=== PATIENT | male | born 1960 | race Caucasian/White ===

== ENCOUNTER 2020-09-22 15:07 | Inpatient (IN) | payer OTHER, MEDICAID ==
[~2020-09-22] VITALS: Ht 190.5 cm; Wt 85.0 kg
[~2020-09-22 15:07] MED LIST: CA C1TAB73 PO; CIPR-278 PO; CLOZ100T32 PO; GABA-1201 PO; SERT50TA12 PO; TRAM50TA4 PO
[2020-09-22] MEDS ORDERED: ACETAMINOPHEN 325 MG TABLET PO PRN ×2 (16:00→17:00)
[2020-09-22 16:03] LABS: HEMATOCRIT 35.4 % (41-53); HEMOGLOBIN 11.4 g/dL (13.5-17.5); LYMPHOCYTES # (AUTO) 0.9 K/uL (1.0-4.8); LYMPHOCYTES % (AUTO) 9.9 % (22.0-44.0); MEAN CORPUSCULAR HEMOGLOBIN 29.7 pg (26.0-34.0); MEAN CORPUSCULAR HGB CONC 32.3 G/dL (31.0-37.0); MEAN CORPUSCULAR VOLUME 92 fL (80-100); MONOCYTES # (AUTO) 0.9 K/uL (0.1-1.0); MONOCYTES % (AUTO) 10.1 % (2.0-9.0); NEUTROPHILS # (AUTO) 6.9 K/uL (1.8-7.7); PLATELET COUNT (AUTO) 275 K/uL (150-450); RED BLOOD CELL COUNT(AUTO) 3.85 MIL/uL (4.50-5.90); RED CELL DISTRIBUTION WIDTH 14.1 % (11.5-14.5)
[2020-09-22 16:21] LABS: B-TYPE NATRIURETIC PEPTIDE 35 pg/mL (0-100)
[2020-09-22 16:23] LABS: ALANINE AMINOTRANSFERASE 22 U/L (12-78); ALBUMIN 2.8 g/dL (3.4-5.0); ALKALINE PHOSPHATASE 61 U/L (46-116); ANION GAP 6 mmol/L (8-16); ASPARTATE AMINOTRANSFERASE 14 U/L (15-37); BILIRUBIN,TOTAL 0.2 mg/dL (0.1-1.0); CALCIUM, TOTAL 8.7 mg/dL (8.8-10.5); CARBON DIOXIDE 28 mmol/L (22-29); CHLORIDE 102 mmol/L (98-107); GLUCOSE,RANDOM 116 mg/dL (70-110); LIPASE 173 U/L (73-393); POTASSIUM 4.3 mmol/L (3.5-5.1); SODIUM SERUM 136 mmol/L (136-145); TOTAL PROTEIN, SERUM 7.1 g/dL (6.4-8.2); UREA NITROGEN, BLOOD 19 mg/dL (7-18)
[2020-09-22 16:34] LABS: CREATININE 1.03 mg/dL (0.60-1.30); GLOMERULAR FILTR. RATE CALC > 60 mL/min (>60)
[2020-09-22] MEDS ORDERED: ZOLPIDEM TARTRATE 10 MG TABLET PO PRN (17:00)
[2020-09-22] MEDS ORDERED: HydrOXYzine PAMOATE 50 MG CAPSULE PO PRN (17:00)
[2020-09-22] MEDS ORDERED: GABAPENTIN 300 MG CAPSULE PO PRN (17:00)
[2020-09-22] MEDS ORDERED: LOPERAMIDE HCL 2 MG CAPSULE PO PRN (17:00)
[2020-09-22] MEDS ORDERED: PROMETHAZINE HCL 25 MG TABLET PO PRN (17:00)
[2020-09-22] MEDS ORDERED: GuaiFENesin/D-METHORPHAN [SUGAR-FREE] 200-20MG/10 ML SYRUP UDCUP PO PRN (17:00)
[2020-09-22] MEDS ORDERED: TUBERCULIN, PURIFIED PROTEIN DERIVATIVE 5 TU/0.1 ML SYRINGE ID ONE (17:00)
[2020-09-22] MEDS ORDERED: QUEtiapine FUMARATE 100 MG TABLET PO PRN (17:00)
[2020-09-22] MEDS ORDERED: MAG HYDROX/AL HYDROX/SIMETH ES 30 ML SUSPENSION UDCUP PO PRN (17:00)
[2020-09-22] MEDS ORDERED: MAGNESIUM HYDROXIDE SUSPENSION 30 ML UDCUP PO PRN (17:00)
[2020-09-22 17:04] LABS: COVID AG,FIA SOURCE NASOPHARYNGEAL
[2020-09-22] MEDS: PARoxetine HCL 20 MG TABLET PO SCH (21:00)
[2020-09-22] MEDS: GABAPENTIN 300 MG CAPSULE PO SCH (21:00)
[2020-09-22] MEDS: THIAMINE 100 MG TABLET PO SCH (21:00)
[2020-09-22] MEDS: QUEtiapine FUMARATE 100 MG TABLET PO SCH (21:00)
[2020-09-22 21:13] VITALS: BP 131/86
[2020-09-22] MEDS ORDERED: DiphenhydrAMINE HCL 50 MG/ML VIAL ONE (21:31)
[2020-09-22] MEDS ORDERED: HALOPERIDOL LACTATE 5 MG/ML VIAL ONE (21:31)
[2020-09-22] MEDS ORDERED: LORazepam 2 MG/ML VIAL ONE (21:31)
[2020-09-22] MEDS ORDERED: LORazepam 2 MG/ML VIAL IM ONE (21:45)
[2020-09-22] MEDS ORDERED: HALOPERIDOL LACTATE 5 MG/ML VIAL IM ONE (21:45)
[2020-09-22] MEDS ORDERED: DiphenhydrAMINE HCL 50 MG/ML VIAL IM ONE (21:45)
[2020-09-22] MEDS: CloZAPine 100 MG TABLET PO SCH (23:05)
[2020-09-23] MEDS: TAMSULOSIN HCL 0.4 MG CAPSULE PO SCH (08:22)
[2020-09-23] MEDS: PARoxetine HCL 20 MG TABLET PO SCH ×3 (08:22→16:15)
[2020-09-23] MEDS: CloZAPine 25 MG TABLET PO SCH ×2 (08:22→16:15)
[2020-09-23] MEDS: GABAPENTIN 300 MG CAPSULE PO SCH ×3 (08:22→16:15)
[2020-09-23] MEDS: FOLIC ACID 1 MG TABLET PO SCH (08:22)
[2020-09-23] MEDS: THIAMINE 100 MG TABLET PO SCH ×2 (08:23→16:15)
[2020-09-23] MEDS: QUEtiapine FUMARATE 100 MG TABLET PO SCH ×3 (08:23→16:15)
[2020-09-23] MEDS: MULTIVITAMINS WITH MINERALS, THERAPEUTIC TABLET PO SCH (08:23)
[2020-09-23 09:10] VITALS: BP 122/67
[2020-09-23 12:38] LABS: HEMOGLOBIN A1C 6.1 % (3.8-5.6)
[2020-09-23 12:42] LABS: CHOL/HDL RATIO 3.7 (4.2-7.3); FREE T4 (FREE THYROXINE) 1.23 ng/dL (0.76-1.46); THYROID STIMULATING HORMONE 3.26 uIU/mL (0.36-3.74)
[2020-09-23] MEDS: BACITRACIN 28 GM OINTMENT TP SCH (13:38)
[2020-09-23 16:00] VITALS: BP 120/78
[2020-09-23] MEDS: CloZAPine 100 MG TABLET PO SCH (20:28)
[2020-09-24 08:00] VITALS: BP 128/71
[2020-09-24] MEDS: MULTIVITAMINS WITH MINERALS, THERAPEUTIC TABLET PO SCH (08:13)
[2020-09-24] MEDS: TAMSULOSIN HCL 0.4 MG CAPSULE PO SCH (08:13)
[2020-09-24] MEDS: GABAPENTIN 300 MG CAPSULE PO SCH ×3 (08:14→16:52)
[2020-09-24] MEDS: PARoxetine HCL 20 MG TABLET PO SCH ×3 (08:14→16:52)
[2020-09-24] MEDS: THIAMINE 100 MG TABLET PO SCH ×2 (08:14→16:53)
[2020-09-24] MEDS: QUEtiapine FUMARATE 100 MG TABLET PO SCH ×3 (08:14→16:52)
[2020-09-24] MEDS: CloZAPine 25 MG TABLET PO SCH ×2 (08:14→16:52)
[2020-09-24] MEDS: FOLIC ACID 1 MG TABLET PO SCH (08:14)
[2020-09-24] MEDS: BACITRACIN 28 GM OINTMENT TP SCH (09:00)
[2020-09-24 16:00] VITALS: BP 124/82
[2020-09-24] MEDS: CloZAPine 100 MG TABLET PO SCH (20:33)
[2020-09-25 08:04] VITALS: BP 143/89
[2020-09-25] MEDS: THIAMINE 100 MG TABLET PO SCH ×2 (08:34→16:01)
[2020-09-25] MEDS: CloZAPine 25 MG TABLET PO SCH ×2 (08:34→16:01)
[2020-09-25] MEDS: FOLIC ACID 1 MG TABLET PO SCH (08:34)
[2020-09-25] MEDS: BACITRACIN 28 GM OINTMENT TP SCH (08:35)
[2020-09-25] MEDS: MULTIVITAMINS WITH MINERALS, THERAPEUTIC TABLET PO SCH (08:35)
[2020-09-25] MEDS: PARoxetine HCL 20 MG TABLET PO SCH ×3 (08:35→16:01)
[2020-09-25] MEDS: TAMSULOSIN HCL 0.4 MG CAPSULE PO SCH (08:35)
[2020-09-25] MEDS: QUEtiapine FUMARATE 100 MG TABLET PO SCH ×3 (08:35→16:01)
[2020-09-25] MEDS: GABAPENTIN 300 MG CAPSULE PO SCH ×3 (08:35→16:01)
[2020-09-25 16:06] VITALS: BP 123/73
[2020-09-25] MEDS: CloZAPine 100 MG TABLET PO SCH (20:01)
[2020-09-26] MEDS: TAMSULOSIN HCL 0.4 MG CAPSULE PO SCH (07:42)
[2020-09-26] MEDS: GABAPENTIN 300 MG CAPSULE PO SCH ×3 (07:42→16:41)
[2020-09-26] MEDS: MULTIVITAMINS WITH MINERALS, THERAPEUTIC TABLET PO SCH (07:42)
[2020-09-26] MEDS: PARoxetine HCL 20 MG TABLET PO SCH ×3 (07:42→16:41)
[2020-09-26] MEDS: CloZAPine 25 MG TABLET PO SCH ×2 (07:42→16:40)
[2020-09-26] MEDS: FOLIC ACID 1 MG TABLET PO SCH (07:42)
[2020-09-26] MEDS: THIAMINE 100 MG TABLET PO SCH ×2 (07:42→16:44)
[2020-09-26] MEDS: QUEtiapine FUMARATE 100 MG TABLET PO SCH ×3 (07:43→16:41)
[2020-09-26] MEDS: BACITRACIN 28 GM OINTMENT TP SCH (07:44)
[2020-09-26 08:00] VITALS: BP 133/83
[2020-09-26 16:00] VITALS: BP 131/77
[2020-09-26] MEDS: CloZAPine 100 MG TABLET PO SCH (20:17)
[2020-09-27 08:00] VITALS: BP 136/75
[2020-09-27] MEDS: PARoxetine HCL 10 MG TABLET PO SCH ×3 (08:05→16:29)
[2020-09-27] MEDS: CloZAPine 25 MG TABLET PO SCH ×2 (08:05→16:29)
[2020-09-27] MEDS: MULTIVITAMINS WITH MINERALS, THERAPEUTIC TABLET PO SCH (08:05)
[2020-09-27] MEDS: BACITRACIN 28 GM OINTMENT TP SCH (08:05)
[2020-09-27] MEDS: TAMSULOSIN HCL 0.4 MG CAPSULE PO SCH (08:06)
[2020-09-27] MEDS: THIAMINE 100 MG TABLET PO SCH ×2 (08:06→16:29)
[2020-09-27] MEDS: FOLIC ACID 1 MG TABLET PO SCH (08:06)
[2020-09-27] MEDS: GABAPENTIN 300 MG CAPSULE PO SCH ×3 (08:06→16:29)
[2020-09-27 15:46] VITALS: BP 99/62
[2020-09-27] MEDS: CloZAPine 100 MG TABLET PO SCH (20:53)
[2020-09-28] MEDS: GABAPENTIN 100 MG CAPSULE PO SCH ×3 (07:49→16:20)
[2020-09-28] MEDS: THIAMINE 100 MG TABLET PO SCH ×2 (07:49→16:20)
[2020-09-28] MEDS: MULTIVITAMINS WITH MINERALS, THERAPEUTIC TABLET PO SCH (07:50)
[2020-09-28] MEDS: FOLIC ACID 1 MG TABLET PO SCH (07:50)
[2020-09-28] MEDS: PARoxetine HCL 10 MG TABLET PO SCH ×2 (07:50→16:20)
[2020-09-28] MEDS: CloZAPine 25 MG TABLET PO SCH ×2 (07:50→16:20)
[2020-09-28] MEDS: TAMSULOSIN HCL 0.4 MG CAPSULE PO SCH (07:50)
[2020-09-28] MEDS: BACITRACIN 28 GM OINTMENT TP SCH (07:51)
[2020-09-28 16:19] VITALS: BP 127/86
[2020-09-28] MEDS: CloZAPine 100 MG TABLET PO SCH (20:17)
[2020-09-28] MEDS ORDERED: PARO10TA71 PO (21:32)
[2020-09-28] MEDS ORDERED: GABA-1216 PO (21:32)
[2020-09-28] MEDS ORDERED: CLOZ25TA4 PO (21:32)
[2020-09-28] MEDS ORDERED: CLOZ100T31 PO (21:32)
[2020-09-28 22:07] LABS: COVID AG,FIA SOURCE NASOPHARYNGEAL
[2020-09-29] MEDS ORDERED: FOLI-130 PO (03:39)
[2020-09-29] MEDS ORDERED: THIA100T80 PO (03:39)
[2020-09-29] MEDS ORDERED: GABA-1216 PO ×2 (03:39→03:41)
[2020-09-29] MEDS ORDERED: ACET-784 PO (03:39)
[2020-09-29] MEDS ORDERED: MULT-1239 PO (03:39)
[2020-09-29] MEDS ORDERED: BACI28.42 TP (03:39)
[2020-09-29] MEDS ORDERED: GABA-1181 PO ×2 (03:39)
[2020-09-29] MEDS ORDERED: TAMS-13 PO (03:39)
[2020-09-29] MEDS ORDERED: QUET100T PO (04:03)
[2020-09-29] MEDS ORDERED: MOM30 PO (04:03)
[2020-09-29] MEDS ORDERED: PROM-163 PO (04:03)
[2020-09-29] MEDS ORDERED: ZOLP10TA8 PO (04:03)
[2020-09-29] MEDS ORDERED: MAAES30 PO (04:26)
[2020-09-29] MEDS ORDERED: CODE10LI PO (04:26)
[2020-09-29] MEDS ORDERED: LOPE2 PO (04:26)
== END 2020-09-28 22:30 | disposition short-term general hospital (02) | DRG 885 ==
LOC: EMS 15:37 → 3EC 22:00
PROVIDERS: ADMIT Psychiatry & Neurology Psychiatry; ATTEND Psychiatry & Neurology Psychiatry
DX: F20.0 Paranoid schizophrenia (principal); N39.0 Urinary tract infection, site not specified; Z20.822 Contact with and (suspected) exposure to COVID-19; D64.9 Anemia, unspecified; N40.0 Benign prostatic hyperplasia without lower urinary tract symptoms; Z87.442 Personal history of urinary calculi; N20.9 Urinary calculus, unspecified
CPT/HCPCS: 74019; 76770; 80159; 83036; 84439; 84443; 86592; 87426; 93005; G0480; J1200; J1630; J2060; 36415-L1; 36415-TC; 71045-TC; 80061-TC

== ENCOUNTER 2020-10-04 19:18 | Inpatient (IN) | payer OTHER, MEDICAID ==
[~2020-10-04] VITALS: Ht 188 cm; Wt 81.1 kg
[~2020-10-04 19:18] MED LIST changes: +ACET-784 PO; +BACI28.42 TP; -CA C1TAB73 PO; -CIPR-278 PO; +CLOZ100T31 PO; -CLOZ100T32 PO; +CLOZ25TA4 PO; +CODE10LI PO; +FOLI-130 PO; +GABA-1181 PO; -GABA-1201 PO; +GABA-1216 PO; +LOPE2 PO; +MAAES30 PO; +MOM30 PO; +MULT-1239 PO; +PARO10TA71 PO; +PROM-163 PO; +QUET100T PO; -SERT50TA12 PO; +TAMS-13 PO; +THIA100T80 PO; -TRAM50TA4 PO; +ZOLP10TA8 PO
[2020-10-04] MEDS ORDERED: HALOPERIDOL LACTATE 5 MG/ML VIAL IM ONE (19:30)
[2020-10-04] MEDS ORDERED: LORazepam 2 MG/ML VIAL IM ONE (19:30)
[2020-10-04] MEDS ORDERED: DiphenhydrAMINE HCL 50 MG/ML VIAL IM ONE (19:30)
[2020-10-04] MEDS ORDERED: HALOPERIDOL 5 MG TABLET PO PRN (19:45)
[2020-10-04] MEDS ORDERED: MAGNESIUM HYDROXIDE SUSPENSION 30 ML UDCUP PO PRN ×2 (19:45→20:45)
[2020-10-04] MEDS ORDERED: ZOLPIDEM TARTRATE 10 MG TABLET PO PRN (19:45)
[2020-10-04] MEDS ORDERED: LOPERAMIDE HCL 2 MG CAPSULE PO PRN ×2 (19:45→20:45)
[2020-10-04] MEDS ORDERED: MAG HYDROX/AL HYDROX/SIMETH ES 30 ML SUSPENSION UDCUP PO PRN ×2 (19:45→20:45)
[2020-10-04] MEDS ORDERED: LORazepam 2 MG TABLET PO PRN (19:45)
[2020-10-04] MEDS ORDERED: ACETAMINOPHEN 325 MG TABLET PO PRN ×2 (19:45→20:45)
[2020-10-04] MEDS ORDERED: OLANZapine 5 MG RAPDIS TABLET PO PRN (20:45)
[2020-10-04] MEDS ORDERED: GuaiFENesin/D-METHORPHAN [SUGAR-FREE] 200-20MG/10 ML SYRUP UDCUP PO PRN (20:45)
[2020-10-04] MEDS ORDERED: TUBERCULIN, PURIFIED PROTEIN DERIVATIVE 5 TU/0.1 ML SYRINGE ID ONE (20:45)
[2020-10-04] MEDS ORDERED: INFLUENZA VIRUS VACCINE QVS 2020-21 (6MO+)/PF 60 MCG/0.5 ML SYRINGE IM ONE (20:45)
[2020-10-04] MEDS ORDERED: PROMETHAZINE HCL 25 MG TABLET PO PRN (20:45)
[2020-10-04] MEDS ORDERED: OLANZapine 10 MG RAPDIS TABLET PO SCH (21:00)
[2020-10-04] MEDS: DIVALPROEX SODIUM 500 MG ER TABLET PO SCH (22:18)
[2020-10-04] MEDS: CloZAPine 100 MG TABLET PO SCH (22:18)
[2020-10-04] MEDS: OLANZapine 5 MG RAPDIS TABLET PO SCH (22:18)
[2020-10-05 07:19] LABS: EOSINOPHILS % (AUTO) 2.7 % (1.0-6.0); HEMATOCRIT 39.8 % (41-53); HEMOGLOBIN 13.4 g/dL (13.5-17.5); LYMPHOCYTES # (AUTO) 1.5 K/uL (1.0-4.8); LYMPHOCYTES % (AUTO) 13.7 % (22.0-44.0); MEAN CORPUSCULAR HEMOGLOBIN 30.3 pg (26.0-34.0); MEAN CORPUSCULAR HGB CONC 33.5 G/dL (31.0-37.0); MEAN CORPUSCULAR VOLUME 90 fL (80-100); MONOCYTES # (AUTO) 0.7 K/uL (0.1-1.0); MONOCYTES % (AUTO) 6.7 % (2.0-9.0); NEUTROPHILS # (AUTO) 8.2 K/uL (1.8-7.7); NEUTROPHILS % (AUTO) 75.9 % (40.0-70.0); PLATELET COUNT (AUTO) 395 K/uL (150-450); RED BLOOD CELL COUNT(AUTO) 4.41 MIL/uL (4.50-5.90); RED CELL DISTRIBUTION WIDTH 13.8 % (11.5-14.5)
[2020-10-05 07:39] LABS: BILIRUBIN,TOTAL 0.2 mg/dL (0.1-1.0); CALCIUM, TOTAL 9.3 mg/dL (8.8-10.5); CHOL/HDL RATIO 4.6 (4.2-7.3); CREATININE 1.25 mg/dL (0.60-1.30); POTASSIUM 4.3 mmol/L (3.5-5.1); TOTAL PROTEIN, SERUM 7.7 g/dL (6.4-8.2)
[2020-10-05 08:00] VITALS: BP 132/73
[2020-10-05 08:03] LABS: FREE T4 (FREE THYROXINE) 1.47 ng/dL (0.76-1.46); THYROID STIMULATING HORMONE 3.29 uIU/mL (0.36-3.74)
[2020-10-05] MEDS: TAMSULOSIN HCL 0.4 MG CAPSULE PO SCH (08:15)
[2020-10-05] MEDS: ZINC SULFATE 220 MG CAPSULE PO SCH ×2 (08:15→16:46)
[2020-10-05] MEDS: MULTIVITAMINS WITH MINERALS, THERAPEUTIC TABLET PO SCH (08:15)
[2020-10-05] MEDS: THIAMINE 100 MG TABLET PO SCH ×2 (08:15→16:45)
[2020-10-05] MEDS: ASCORBIC ACID 500 MG TABLET PO SCH ×2 (08:15→16:45)
[2020-10-05] MEDS: FAMOTIDINE 20 MG TABLET PO SCH ×2 (08:16→16:45)
[2020-10-05] MEDS: OLANZapine 5 MG RAPDIS TABLET PO SCH ×4 (08:16→20:30)
[2020-10-05] MEDS: AMOXICILLIN TRIHYDRATE 500 MG CAPSULE PO SCH ×3 (08:16→16:45)
[2020-10-05] MEDS: CHOLECALCIFEROL (VIT D3) 1,000 UNITS [25 MCG] TABLET PO SCH (08:16)
[2020-10-05] MEDS: FOLIC ACID 1 MG TABLET PO SCH (08:16)
[2020-10-05] MEDS: CloZAPine 100 MG TABLET PO SCH ×4 (08:16→20:29)
[2020-10-05] MEDS ORDERED: FOLIC ACID 1 MG TABLET PO SCH (09:00)
[2020-10-05 16:03] VITALS: BP 134/81
[2020-10-05] MEDS: DIVALPROEX SODIUM 500 MG ER TABLET PO SCH (20:29)
[2020-10-05] MEDS: DUTASTERIDE 0.5 MG CAPSULE PO SCH (20:30)
[2020-10-06] MEDS: CloZAPine 100 MG TABLET PO SCH ×4 (07:59→20:12)
[2020-10-06] MEDS: TAMSULOSIN HCL 0.4 MG CAPSULE PO SCH (07:59)
[2020-10-06] MEDS: ASCORBIC ACID 500 MG TABLET PO SCH ×2 (07:59→16:33)
[2020-10-06] MEDS: THIAMINE 100 MG TABLET PO SCH ×2 (07:59→16:34)
[2020-10-06] MEDS: FAMOTIDINE 20 MG TABLET PO SCH ×2 (07:59→16:33)
[2020-10-06] MEDS: MULTIVITAMINS WITH MINERALS, THERAPEUTIC TABLET PO SCH (07:59)
[2020-10-06 08:00] VITALS: BP 139/77
[2020-10-06] MEDS: CHOLECALCIFEROL (VIT D3) 1,000 UNITS [25 MCG] TABLET PO SCH (08:00)
[2020-10-06] MEDS: OLANZapine 5 MG RAPDIS TABLET PO SCH ×4 (08:00→20:12)
[2020-10-06] MEDS: FOLIC ACID 1 MG TABLET PO SCH (08:00)
[2020-10-06] MEDS: ZINC SULFATE 220 MG CAPSULE PO SCH ×2 (08:01→16:34)
[2020-10-06] MEDS: AMOXICILLIN TRIHYDRATE 500 MG CAPSULE PO SCH ×3 (08:02→16:34)
[2020-10-06 16:09] VITALS: BP 133/83
[2020-10-06] MEDS: DIVALPROEX SODIUM 500 MG ER TABLET PO SCH (20:11)
[2020-10-06] MEDS: DUTASTERIDE 0.5 MG CAPSULE PO SCH (20:11)
[2020-10-07 02:21] LABS: APPEARANCE,URINE CLOUDY (CLEAR); BILIRUBIN,URINE NEGATIVE (NEGATIVE); GLUCOSE, URINE (UA) NEGATIVE (NEGATIVE); KETONES,URINE TRACE mg/dL (NEGATIVE); LEUKOCYTE ESTERASE ,URINE TRACE (NEGATIVE); NITRATE,URINE NEGATIVE (NEGATIVE); OCCULT BLOOD,URINE LARGE (NEGATIVE); PROTEIN,URINE TRACE (NEGATIVE); UROBILINOGEN,URINE 0.2 mg/dL (<=1.0)
[2020-10-07 02:27] LABS: AMPHET/METH SCREEN,URINE NEGATIVE (NEGATIVE); BARBITURATE SCREEN, URINE NEGATIVE (NEGATIVE); BENZODIAZEPINES SCREEN,URINE NEGATIVE (NEGATIVE); CANNABINOID SCREEN,URINE NEGATIVE (NEGATIVE); COCAINE SCREEN,URINE NEGATIVE (NEGATIVE); METHADONE SCREEN, URINE NEGATIVE (NEGATIVE); OPIATE SCREEN,URINE NEGATIVE (NEGATIVE)
[2020-10-07 02:28] LABS: BACTERIA,URINE Few /HPF (None Seen); PHENCYCLIDINE SCREEN,URINE NEGATIVE (NEGATIVE); SQUAMOUS EPITHELIAL CELL,UR Few /LPF (None Seen); WBC,URINE 0-2 /HPF (0-5)
[2020-10-07 07:10] LABS: GLUCOMETER DEV NAME(LOC) 3E.C; GLUCOSE,POINT OF CARE 95 MG/DL (70-110)
[2020-10-07 09:39] VITALS: BP 144/68
[2020-10-07] MEDS: CloZAPine 100 MG TABLET PO SCH ×4 (09:39→20:45)
[2020-10-07] MEDS: TAMSULOSIN HCL 0.4 MG CAPSULE PO SCH (09:39)
[2020-10-07] MEDS: MULTIVITAMINS WITH MINERALS, THERAPEUTIC TABLET PO SCH (09:40)
[2020-10-07] MEDS: THIAMINE 100 MG TABLET PO SCH ×2 (09:40→16:59)
[2020-10-07] MEDS: ZINC SULFATE 220 MG CAPSULE PO SCH ×2 (09:40→16:59)
[2020-10-07] MEDS: FAMOTIDINE 20 MG TABLET PO SCH ×2 (09:40→16:59)
[2020-10-07] MEDS: CHOLECALCIFEROL (VIT D3) 1,000 UNITS [25 MCG] TABLET PO SCH (09:40)
[2020-10-07] MEDS: FOLIC ACID 1 MG TABLET PO SCH (09:40)
[2020-10-07] MEDS: AMOXICILLIN TRIHYDRATE 500 MG CAPSULE PO SCH ×2 (09:40→13:43)
[2020-10-07] MEDS: ASCORBIC ACID 500 MG TABLET PO SCH ×2 (09:40→17:03)
[2020-10-07] MEDS: OLANZapine 5 MG RAPDIS TABLET PO SCH ×4 (09:40→20:45)
[2020-10-07 16:30] VITALS: BP 113/72
[2020-10-07] MEDS: HydrOXYzine PAMOATE 50 MG CAPSULE PO PRN (17:09)
[2020-10-07] MEDS: DIVALPROEX SODIUM 500 MG ER TABLET PO SCH (20:44)
[2020-10-07] MEDS: DUTASTERIDE 0.5 MG CAPSULE PO SCH (20:45)
[2020-10-08] MEDS: FOLIC ACID 1 MG TABLET PO SCH (08:27)
[2020-10-08] MEDS: CHOLECALCIFEROL (VIT D3) 1,000 UNITS [25 MCG] TABLET PO SCH (08:28)
[2020-10-08] MEDS: MULTIVITAMINS WITH MINERALS, THERAPEUTIC TABLET PO SCH (08:28)
[2020-10-08] MEDS: OLANZapine 5 MG RAPDIS TABLET PO SCH ×4 (08:28→21:00)
[2020-10-08] MEDS: FAMOTIDINE 20 MG TABLET PO SCH ×2 (08:28→16:59)
[2020-10-08] MEDS: ZINC SULFATE 220 MG CAPSULE PO SCH ×2 (08:28→17:00)
[2020-10-08] MEDS: CloZAPine 100 MG TABLET PO SCH ×4 (08:28→21:00)
[2020-10-08] MEDS: THIAMINE 100 MG TABLET PO SCH ×2 (08:28→17:01)
[2020-10-08] MEDS: ASCORBIC ACID 500 MG TABLET PO SCH ×2 (08:29→17:00)
[2020-10-08] MEDS: TAMSULOSIN HCL 0.4 MG CAPSULE PO SCH (08:29)
[2020-10-08 09:43] VITALS: BP 127/98
[2020-10-08] MEDS ORDERED: DiphenhydrAMINE HCL 50 MG/ML VIAL IM ONE (10:00)
[2020-10-08] MEDS ORDERED: HALOPERIDOL LACTATE 5 MG/ML VIAL IM ONE (10:00)
[2020-10-08] MEDS ORDERED: LORazepam 2 MG/ML VIAL IM ONE (10:00)
[2020-10-08 16:30] VITALS: BP 142/83
[2020-10-08] MEDS: HydrOXYzine PAMOATE 50 MG CAPSULE PO PRN (19:28)
[2020-10-08] MEDS: DUTASTERIDE 0.5 MG CAPSULE PO SCH (21:00)
[2020-10-08] MEDS: DIVALPROEX SODIUM 500 MG ER TABLET PO SCH (21:00)
[2020-10-09] MEDS: HydrOXYzine PAMOATE 50 MG CAPSULE PO PRN (04:36)
[2020-10-09 06:49] VITALS: BP 127/66
[2020-10-09] MEDS: FAMOTIDINE 20 MG TABLET PO SCH ×2 (09:00→17:16)
[2020-10-09] MEDS: CHOLECALCIFEROL (VIT D3) 1,000 UNITS [25 MCG] TABLET PO SCH (09:00)
[2020-10-09] MEDS: FOLIC ACID 1 MG TABLET PO SCH (09:00)
[2020-10-09] MEDS: ZINC SULFATE 220 MG CAPSULE PO SCH ×2 (09:00→17:16)
[2020-10-09] MEDS: TAMSULOSIN HCL 0.4 MG CAPSULE PO SCH (09:00)
[2020-10-09] MEDS: OLANZapine 5 MG RAPDIS TABLET PO SCH ×4 (09:00→20:20)
[2020-10-09] MEDS: CloZAPine 100 MG TABLET PO SCH ×4 (09:00→20:20)
[2020-10-09] MEDS: ASCORBIC ACID 500 MG TABLET PO SCH ×2 (09:00→17:16)
[2020-10-09] MEDS: THIAMINE 100 MG TABLET PO SCH ×2 (09:00→17:16)
[2020-10-09] MEDS: MULTIVITAMINS WITH MINERALS, THERAPEUTIC TABLET PO SCH (09:00)
[2020-10-09 16:30] VITALS: BP 133/76
[2020-10-09] MEDS: DUTASTERIDE 0.5 MG CAPSULE PO SCH (20:19)
[2020-10-09] MEDS: DIVALPROEX SODIUM 500 MG ER TABLET PO SCH (20:19)
[2020-10-09] MEDS ORDERED: HALOPERIDOL 5 MG TABLET PO PRN (22:45)
[2020-10-10 01:09] VITALS: BP 147/83
[2020-10-10 08:00] VITALS: BP 117/81
[2020-10-10] MEDS: TAMSULOSIN HCL 0.4 MG CAPSULE PO SCH (10:42)
[2020-10-10] MEDS: CHOLECALCIFEROL (VIT D3) 1,000 UNITS [25 MCG] TABLET PO SCH (10:42)
[2020-10-10] MEDS: FAMOTIDINE 20 MG TABLET PO SCH ×2 (10:42→17:13)
[2020-10-10] MEDS: ASCORBIC ACID 500 MG TABLET PO SCH ×2 (10:42→17:12)
[2020-10-10] MEDS: THIAMINE 100 MG TABLET PO SCH ×2 (10:42→17:12)
[2020-10-10] MEDS: CloZAPine 100 MG TABLET PO SCH ×4 (10:42→21:26)
[2020-10-10] MEDS: MULTIVITAMINS WITH MINERALS, THERAPEUTIC TABLET PO SCH (10:42)
[2020-10-10] MEDS: ZINC SULFATE 220 MG CAPSULE PO SCH ×2 (10:43→17:12)
[2020-10-10] MEDS: FOLIC ACID 1 MG TABLET PO SCH (10:44)
[2020-10-10] MEDS: HALOPERIDOL 1 MG TABLET PO SCH ×4 (10:48→21:27)
[2020-10-10 16:30] VITALS: BP 118/67
[2020-10-10 17:16] LABS: COVID AG,FIA SOURCE NASOPHARYNGEAL
[2020-10-10] MEDS: DUTASTERIDE 0.5 MG CAPSULE PO SCH (21:27)
[2020-10-10] MEDS: DIVALPROEX SODIUM 500 MG ER TABLET PO SCH (21:27)
[2020-10-10] MEDS: FluPHENAZine HCL 1 MG TABLET PO SCH (21:28)
[2020-10-11] MEDS: FluPHENAZine HCL 1 MG TABLET PO SCH ×4 (09:00→21:18)
[2020-10-11] MEDS: FAMOTIDINE 20 MG TABLET PO SCH ×2 (09:00→17:18)
[2020-10-11] MEDS: CloZAPine 100 MG TABLET PO SCH ×4 (09:00→21:18)
[2020-10-11] MEDS: ASCORBIC ACID 500 MG TABLET PO SCH ×2 (09:00→17:19)
[2020-10-11] MEDS: HALOPERIDOL 1 MG TABLET PO SCH ×4 (09:00→21:17)
[2020-10-11] MEDS: TAMSULOSIN HCL 0.4 MG CAPSULE PO SCH (09:00)
[2020-10-11] MEDS: THIAMINE 100 MG TABLET PO SCH ×2 (09:00→17:19)
[2020-10-11] MEDS: MULTIVITAMINS WITH MINERALS, THERAPEUTIC TABLET PO SCH (09:00)
[2020-10-11] MEDS: FOLIC ACID 1 MG TABLET PO SCH (09:00)
[2020-10-11] MEDS: CHOLECALCIFEROL (VIT D3) 1,000 UNITS [25 MCG] TABLET PO SCH (09:00)
[2020-10-11] MEDS: ZINC SULFATE 220 MG CAPSULE PO SCH ×2 (09:00→17:18)
[2020-10-11 16:30] VITALS: BP 120/70
[2020-10-11] MEDS: DUTASTERIDE 0.5 MG CAPSULE PO SCH (21:17)
[2020-10-11] MEDS: DIVALPROEX SODIUM 500 MG ER TABLET PO SCH (21:17)
[2020-10-12 07:50] LABS: BASOPHILS % (AUTO) 1.7 % (0.0-2.0); EOSINOPHILS % (AUTO) 3.1 % (1.0-6.0); HEMATOCRIT 38.5 % (41-53); HEMOGLOBIN 12.7 g/dL (13.5-17.5); LYMPHOCYTES # (AUTO) 1.7 K/uL (1.0-4.8); LYMPHOCYTES % (AUTO) 21.4 % (22.0-44.0); MEAN CORPUSCULAR HEMOGLOBIN 30.1 pg (26.0-34.0); MEAN CORPUSCULAR VOLUME 91 fL (80-100); MONOCYTES # (AUTO) 0.6 K/uL (0.1-1.0); MONOCYTES % (AUTO) 7.7 % (2.0-9.0); NEUTROPHILS # (AUTO) 5.1 K/uL (1.8-7.7); NEUTROPHILS % (AUTO) 66.1 % (40.0-70.0); PLATELET COUNT (AUTO) 267 K/uL (150-450); RED BLOOD CELL COUNT(AUTO) 4.22 MIL/uL (4.50-5.90); RED CELL DISTRIBUTION WIDTH 14.3 % (11.5-14.5)
[2020-10-12] MEDS: FOLIC ACID 1 MG TABLET PO SCH (09:00)
[2020-10-12] MEDS: TAMSULOSIN HCL 0.4 MG CAPSULE PO SCH (09:00)
[2020-10-12] MEDS: ZINC SULFATE 220 MG CAPSULE PO SCH ×2 (09:00→16:54)
[2020-10-12] MEDS: ASCORBIC ACID 500 MG TABLET PO SCH ×2 (09:00→16:54)
[2020-10-12] MEDS: CHOLECALCIFEROL (VIT D3) 1,000 UNITS [25 MCG] TABLET PO SCH (09:00)
[2020-10-12] MEDS: FluPHENAZine HCL 1 MG TABLET PO SCH ×4 (09:00→21:12)
[2020-10-12] MEDS: MULTIVITAMINS WITH MINERALS, THERAPEUTIC TABLET PO SCH (09:00)
[2020-10-12] MEDS: HALOPERIDOL 1 MG TABLET PO SCH (09:00)
[2020-10-12] MEDS: FAMOTIDINE 20 MG TABLET PO SCH ×2 (09:00→16:54)
[2020-10-12] MEDS: CloZAPine 100 MG TABLET PO SCH ×3 (09:00→16:55)
[2020-10-12] MEDS: THIAMINE 100 MG TABLET PO SCH ×2 (09:00→16:54)
[2020-10-12 10:13] VITALS: BP 114/73
[2020-10-12 16:00] VITALS: BP 127/74
[2020-10-12] MEDS: DUTASTERIDE 0.5 MG CAPSULE PO SCH (21:12)
[2020-10-12] MEDS: DIVALPROEX SODIUM 500 MG ER TABLET PO SCH (21:12)
[2020-10-13] MEDS: ASCORBIC ACID 500 MG TABLET PO SCH ×2 (09:00→16:17)
[2020-10-13] MEDS: THIAMINE 100 MG TABLET PO SCH ×2 (09:00→16:17)
[2020-10-13] MEDS: TAMSULOSIN HCL 0.4 MG CAPSULE PO SCH (09:00)
[2020-10-13] MEDS: FluPHENAZine HCL 1 MG TABLET PO SCH ×3 (09:00→16:17)
[2020-10-13] MEDS: FAMOTIDINE 20 MG TABLET PO SCH ×2 (09:00→16:17)
[2020-10-13] MEDS: FOLIC ACID 1 MG TABLET PO SCH (09:00)
[2020-10-13] MEDS: ZINC SULFATE 220 MG CAPSULE PO SCH ×2 (09:00→16:17)
[2020-10-13] MEDS: MULTIVITAMINS WITH MINERALS, THERAPEUTIC TABLET PO SCH (09:00)
[2020-10-13] MEDS: CHOLECALCIFEROL (VIT D3) 1,000 UNITS [25 MCG] TABLET PO SCH (09:00)
[2020-10-13 16:00] VITALS: BP 106/75
[2020-10-13] MEDS: FluPHENAZine HCL 10 MG TABLET PO SCH (20:12)
[2020-10-13] MEDS: DIVALPROEX SODIUM 500 MG ER TABLET PO SCH (20:12)
[2020-10-13] MEDS: DUTASTERIDE 0.5 MG CAPSULE PO SCH (20:12)
[2020-10-13] MEDS: CloZAPine 100 MG TABLET PO SCH (20:12)
[2020-10-13] MEDS ORDERED: FluPHENAZine HCL 5 MG TABLET PO SCH (21:00)
[2020-10-14] MEDS: THIAMINE 100 MG TABLET PO SCH ×2 (09:00→17:10)
[2020-10-14] MEDS: ASCORBIC ACID 500 MG TABLET PO SCH ×2 (09:00→17:10)
[2020-10-14] MEDS: TAMSULOSIN HCL 0.4 MG CAPSULE PO SCH (09:00)
[2020-10-14] MEDS: ZINC SULFATE 220 MG CAPSULE PO SCH ×2 (09:00→17:10)
[2020-10-14] MEDS: CHOLECALCIFEROL (VIT D3) 1,000 UNITS [25 MCG] TABLET PO SCH (09:00)
[2020-10-14] MEDS: MULTIVITAMINS WITH MINERALS, THERAPEUTIC TABLET PO SCH (09:00)
[2020-10-14] MEDS: BENZTROPINE MESYLATE 1 MG TABLET PO SCH ×3 (09:00→17:10)
[2020-10-14] MEDS: FOLIC ACID 1 MG TABLET PO SCH (09:00)
[2020-10-14] MEDS: FAMOTIDINE 20 MG TABLET PO SCH ×2 (09:00→17:09)
[2020-10-14 10:05] VITALS: BP 119/70
[2020-10-14 17:00] VITALS: BP 121/74
[2020-10-14] MEDS: DIVALPROEX SODIUM 500 MG ER TABLET PO SCH (20:49)
[2020-10-14] MEDS: CloZAPine 100 MG TABLET PO SCH (20:49)
[2020-10-14] MEDS: FluPHENAZine HCL 10 MG TABLET PO SCH (20:50)
[2020-10-14] MEDS: DUTASTERIDE 0.5 MG CAPSULE PO SCH (20:50)
[2020-10-15 00:15] VITALS: BP 127/80
[2020-10-15 08:12] VITALS: BP 119/71
[2020-10-15] MEDS: BENZTROPINE MESYLATE 1 MG TABLET PO SCH ×3 (09:00→16:36)
[2020-10-15] MEDS: MULTIVITAMINS WITH MINERALS, THERAPEUTIC TABLET PO SCH (09:00)
[2020-10-15] MEDS: ASCORBIC ACID 500 MG TABLET PO SCH ×2 (09:00→16:36)
[2020-10-15] MEDS: TAMSULOSIN HCL 0.4 MG CAPSULE PO SCH (09:00)
[2020-10-15] MEDS: FAMOTIDINE 20 MG TABLET PO SCH ×2 (09:00→16:36)
[2020-10-15] MEDS: ZINC SULFATE 220 MG CAPSULE PO SCH ×2 (09:00→16:36)
[2020-10-15] MEDS: CHOLECALCIFEROL (VIT D3) 1,000 UNITS [25 MCG] TABLET PO SCH (09:00)
[2020-10-15 16:34] VITALS: BP 108/83
[2020-10-15] MEDS: DIVALPROEX SODIUM 500 MG ER TABLET PO SCH (21:00)
[2020-10-15] MEDS: FluPHENAZine HCL 10 MG TABLET PO SCH (21:00)
[2020-10-15] MEDS: CloZAPine 100 MG TABLET PO SCH (21:00)
[2020-10-15] MEDS: DUTASTERIDE 0.5 MG CAPSULE PO SCH (21:00)
[2020-10-16 08:48] VITALS: BP 111/71
[2020-10-16] MEDS: FAMOTIDINE 20 MG TABLET PO SCH ×2 (09:00→17:00)
[2020-10-16] MEDS: MULTIVITAMINS WITH MINERALS, THERAPEUTIC TABLET PO SCH (09:00)
[2020-10-16] MEDS: CHOLECALCIFEROL (VIT D3) 1,000 UNITS [25 MCG] TABLET PO SCH (09:00)
[2020-10-16] MEDS: ASCORBIC ACID 500 MG TABLET PO SCH ×2 (09:00→17:00)
[2020-10-16] MEDS: ZINC SULFATE 220 MG CAPSULE PO SCH ×2 (09:00→17:00)
[2020-10-16] MEDS: BENZTROPINE MESYLATE 1 MG TABLET PO SCH ×3 (09:00→17:00)
[2020-10-16] MEDS: TAMSULOSIN HCL 0.4 MG CAPSULE PO SCH (09:00)
[2020-10-16] MEDS ORDERED: CHOL100018 PO (11:48)
[2020-10-16] MEDS ORDERED: DIVA-80 PO (11:48)
[2020-10-16] MEDS ORDERED: BENZ1TAB10 PO (11:48)
[2020-10-16] MEDS ORDERED: ASCO500 PO (11:48)
[2020-10-16] MEDS ORDERED: FLUP10TA8 PO (11:48)
[2020-10-16] MEDS ORDERED: CLOZ100T31 PO (11:48)
[2020-10-16] MEDS ORDERED: ZINC220C14 PO (11:48)
[2020-10-16 16:30] VITALS: BP 144/70
[2020-10-16] MEDS: DIVALPROEX SODIUM 500 MG ER TABLET PO SCH (21:26)
[2020-10-16] MEDS: FluPHENAZine HCL 10 MG TABLET PO SCH (21:27)
[2020-10-16] MEDS: CloZAPine 100 MG TABLET PO SCH (21:28)
[2020-10-16] MEDS: DUTASTERIDE 0.5 MG CAPSULE PO SCH (21:28)
[2020-10-17] VITALS (8 sets, daily range): BP systolic 113–142; BP diastolic 63–78
[2020-10-17] MEDS: MULTIVITAMINS WITH MINERALS, THERAPEUTIC TABLET PO SCH (09:00)
[2020-10-17] MEDS: ASCORBIC ACID 500 MG TABLET PO SCH ×2 (09:00→16:21)
[2020-10-17] MEDS: BENZTROPINE MESYLATE 1 MG TABLET PO SCH ×3 (09:00→16:21)
[2020-10-17] MEDS: CHOLECALCIFEROL (VIT D3) 1,000 UNITS [25 MCG] TABLET PO SCH (09:00)
[2020-10-17] MEDS: TAMSULOSIN HCL 0.4 MG CAPSULE PO SCH (09:00)
[2020-10-17] MEDS: FAMOTIDINE 20 MG TABLET PO SCH ×2 (09:00→16:21)
[2020-10-17] MEDS: ZINC SULFATE 220 MG CAPSULE PO SCH ×2 (09:00→16:21)
[2020-10-17] MEDS ORDERED: DUTA.5 PO (12:35)
[2020-10-17] MEDS ORDERED: FAMO20 PO (12:35)
[2020-10-17] MEDS: DIVALPROEX SODIUM 500 MG ER TABLET PO SCH (21:11)
[2020-10-17] MEDS: CloZAPine 100 MG TABLET PO SCH (21:11)
[2020-10-17] MEDS: FluPHENAZine HCL 10 MG TABLET PO SCH (21:14)
[2020-10-17] MEDS: DUTASTERIDE 0.5 MG CAPSULE PO SCH (21:14)
[2020-10-18 08:31] VITALS: BP 129/63
[2020-10-18] MEDS: CHOLECALCIFEROL (VIT D3) 1,000 UNITS [25 MCG] TABLET PO SCH (09:00)
[2020-10-18] MEDS: ASCORBIC ACID 500 MG TABLET PO SCH (09:00)
[2020-10-18] MEDS: ZINC SULFATE 220 MG CAPSULE PO SCH (09:00)
[2020-10-18] MEDS: FAMOTIDINE 20 MG TABLET PO SCH (09:00)
[2020-10-18] MEDS: TAMSULOSIN HCL 0.4 MG CAPSULE PO SCH (09:00)
[2020-10-18] MEDS: BENZTROPINE MESYLATE 1 MG TABLET PO SCH ×2 (09:00→12:04)
[2020-10-18] MEDS: MULTIVITAMINS WITH MINERALS, THERAPEUTIC TABLET PO SCH (09:00)
== END 2020-10-18 16:15 | disposition home or self-care (01) | DRG 885 ==
LOC: 3EC 19:42 → 3EI 10-06 22:06
PROVIDERS: ADMIT Psychiatry & Neurology Psychiatry; ATTEND Psychiatry & Neurology Psychiatry
DX: F20.0 Paranoid schizophrenia (principal); N13.2 Hydronephrosis with renal and ureteral calculous obstruction; N40.1 Benign prostatic hyperplasia with lower urinary tract symptoms; Z87.442 Personal history of urinary calculi; M54.9 Dorsalgia, unspecified; D64.9 Anemia, unspecified; R09.02 Hypoxemia; Z20.822 Contact with and (suspected) exposure to COVID-19; R33.8 Other retention of urine; Z91.19 Patient's noncompliance with other medical treatment and regimen
CPT/HCPCS: 80159; 80307; 84439; 84443; 87081; 87426; J1200; J1630; J2060

== ENCOUNTER 2020-11-10 10:33 | Inpatient (IN) | payer MEDICARE, MEDICAID ==
[~2020-11-10] VITALS: Ht 188 cm; Wt 81.8 kg
[~2020-11-10 10:33] MED LIST changes: -ACET-784 PO; +ASCO500 PO; -BACI28.42 TP; +BENZ1TAB10 PO; +CHOL100044 PO; -CLOZ25TA4 PO; -CODE10LI PO; +DIVA-80 PO; +DUTA.5 PO; +FAMO20 PO; +FLUP10TA8 PO; -FOLI-130 PO; -GABA-1181 PO; -GABA-1216 PO; -LOPE2 PO; -MAAES30 PO; -MOM30 PO; -PARO10TA71 PO; -PROM-163 PO; -QUET100T PO; -THIA100T80 PO; +ZINC220C14 PO; -ZOLP10TA8 PO
[2020-11-10 11:12] LABS: AMPHET/METH SCREEN,URINE NEGATIVE (NEGATIVE); BARBITURATE SCREEN, URINE NEGATIVE (NEGATIVE); BENZODIAZEPINES SCREEN,URINE NEGATIVE (NEGATIVE); CANNABINOID SCREEN,URINE NEGATIVE (NEGATIVE); COCAINE SCREEN,URINE NEGATIVE (NEGATIVE); METHADONE SCREEN, URINE NEGATIVE (NEGATIVE); OPIATE SCREEN,URINE NEGATIVE (NEGATIVE)
[2020-11-10 11:20] LABS: COVID AG,FIA SOURCE NASOPHARYNGEAL
[2020-11-10 11:20] LABS: APPEARANCE,URINE CLOUDY (CLEAR); BILIRUBIN,URINE NEGATIVE (NEGATIVE); GLUCOSE, URINE (UA) NEGATIVE (NEGATIVE); KETONES,URINE TRACE mg/dL (NEGATIVE); LEUKOCYTE ESTERASE ,URINE MODERATE (NEGATIVE); NITRATE,URINE NEGATIVE (NEGATIVE); OCCULT BLOOD,URINE LARGE (NEGATIVE); PROTEIN,URINE SEE CONFIRM (NEGATIVE); UROBILINOGEN,URINE 0.2 mg/dL (<=1.0)
[2020-11-10 11:28] LABS: PHENCYCLIDINE SCREEN,URINE NEGATIVE (NEGATIVE)
[2020-11-10 12:00] LABS: BASOPHILS % (AUTO) 1.7 % (0.0-2.0); EOSINOPHILS % (AUTO) 5.1 % (1.0-6.0); HEMATOCRIT 37.8 % (41-53); HEMOGLOBIN 12.6 g/dL (13.5-17.5); LYMPHOCYTES # (AUTO) 1.3 K/uL (1.0-4.8); LYMPHOCYTES % (AUTO) 22.6 % (22.0-44.0); MEAN CORPUSCULAR HGB CONC 33.2 G/dL (31.0-37.0); MEAN CORPUSCULAR VOLUME 90 fL (80-100); MONOCYTES # (AUTO) 0.7 K/uL (0.1-1.0); MONOCYTES % (AUTO) 11.4 % (2.0-9.0); NEUTROPHILS # (AUTO) 3.5 K/uL (1.8-7.7); NEUTROPHILS % (AUTO) 59.2 % (40.0-70.0); PLATELET COUNT (AUTO) 194 K/uL (150-450); RED BLOOD CELL COUNT(AUTO) 4.19 MIL/uL (4.50-5.90); RED CELL DISTRIBUTION WIDTH 14.7 % (11.5-14.5)
[2020-11-10 12:05] LABS: BACTERIA,URINE Moderate /HPF (None Seen); RBC,URINE 51-100 /HPF (0-2); SULFOSALICYLIC ACID,URINE 2+ (Negative)
[2020-11-10 12:27] LABS: ANION GAP 11 mmol/L (8-16); CARBON DIOXIDE 25 mmol/L (22-29); CHLORIDE 109 mmol/L (98-107); CREATININE 0.96 mg/dL (0.60-1.30); GLOMERULAR FILTR. RATE CALC > 60 mL/min (>60); GLUCOSE,RANDOM 101 mg/dL (70-110); POTASSIUM 4.1 mmol/L (3.5-5.1); SODIUM SERUM 145 mmol/L (136-145); UREA NITROGEN, BLOOD 17 mg/dL (7-18)
[2020-11-10 12:33] LABS: ALANINE AMINOTRANSFERASE 13 U/L (12-78); ALBUMIN 2.9 g/dL (3.4-5.0); ALKALINE PHOSPHATASE 43 U/L (46-116); ASPARTATE AMINOTRANSFERASE 11 U/L (15-37); BILIRUBIN,TOTAL 0.2 mg/dL (0.1-1.0); TOTAL PROTEIN, SERUM 6.4 g/dL (6.4-8.2); VALPROIC ACID 63 mcg/mL (50-100)
[2020-11-10] MEDS ORDERED: SODIUM CHLORIDE 0.9% 1,000 ML IV ONE (12:45)
[2020-11-10] MEDS ORDERED: CefTRIAXone 1 GM/DEXTROSE 50 ML IV ONE (12:45)
[2020-11-10] MEDS ORDERED: 0.9% SODIUM CHLORIDE 10 ML SYRINGE IVP PRN (14:00)
[2020-11-10 15:17] VITALS: BP 117/73
[2020-11-10] MEDS ORDERED: MAGNESIUM HYDROXIDE SUSPENSION 30 ML UDCUP PO PRN (15:45)
[2020-11-10] MEDS ORDERED: ACETAMINOPHEN 325 MG TABLET PO PRN (15:45)
[2020-11-10] MEDS ORDERED: BISACODYL 10 MG RECTAL RECTAL SUPPOSITORY PR PRN (15:45)
[2020-11-10] MEDS ORDERED: ZOLPIDEM TARTRATE 5 MG TABLET PO PRN (15:45)
[2020-11-10] MEDS ORDERED: ONDANSETRON HCL 4 MG/2 ML VIAL IVP PRN (15:45)
[2020-11-10] MEDS ORDERED: DUTA.5 PO (16:05)
[2020-11-10] MEDS ORDERED: QUEtiapine FUMARATE 100 MG TABLET PO PRN (16:45)
[2020-11-10] MEDS ORDERED: GABAPENTIN 300 MG CAPSULE PO PRN (16:45)
[2020-11-10 20:17] VITALS: BP 142/64
[2020-11-10] MEDS: MELATONIN 5 MG TABLET PO SCH (20:32)
[2020-11-10] MEDS: FAMOTIDINE 20 MG TABLET PO SCH (20:32)
[2020-11-10] MEDS: DUTASTERIDE 0.5 MG CAPSULE PO SCH (20:33)
[2020-11-10] MEDS: DIVALPROEX SODIUM 500 MG ER TABLET PO SCH (20:33)
[2020-11-10] MEDS: CloZAPine 100 MG TABLET PO SCH (20:33)
[2020-11-11 00:35] VITALS: BP 109/60
[2020-11-11 04:31] VITALS: BP 123/66
[2020-11-11 06:07] LABS: BASOPHILS % (AUTO) 1.1 % (0.0-2.0); EOSINOPHILS % (AUTO) 7.7 % (1.0-6.0); HEMATOCRIT 40.9 % (41-53); HEMOGLOBIN 12.9 g/dL (13.5-17.5); LYMPHOCYTES # (AUTO) 1.7 K/uL (1.0-4.8); MEAN CORPUSCULAR HEMOGLOBIN 29.7 pg (26.0-34.0); MEAN CORPUSCULAR HGB CONC 31.6 G/dL (31.0-37.0); MEAN CORPUSCULAR VOLUME 94 fL (80-100); MONOCYTES # (AUTO) 0.8 K/uL (0.1-1.0); MONOCYTES % (AUTO) 11.1 % (2.0-9.0); NEUTROPHILS # (AUTO) 3.8 K/uL (1.8-7.7); NEUTROPHILS % (AUTO) 55.1 % (40.0-70.0); PLATELET COUNT (AUTO) 198 K/uL (150-450); RED BLOOD CELL COUNT(AUTO) 4.34 MIL/uL (4.50-5.90); RED CELL DISTRIBUTION WIDTH 15.1 % (11.5-14.5)
[2020-11-11 07:03] LABS: HEMOGLOBIN A1C 5.5 % (3.8-5.6)
[2020-11-11 07:19] LABS: ANION GAP 11 mmol/L (8-16); CALCIUM, TOTAL 8.8 mg/dL (8.8-10.5); CARBON DIOXIDE 25 mmol/L (22-29); CHLORIDE 110 mmol/L (98-107); CHOL/HDL RATIO 3.9 (4.2-7.3); CHOLESTEROL 163 mg/dL (131-200); CREATININE 1.03 mg/dL (0.60-1.30); FREE T4 (FREE THYROXINE) 1.04 ng/dL (0.76-1.46); GLOMERULAR FILTR. RATE CALC > 60 mL/min (>60); GLUCOSE,RANDOM 98 mg/dL (70-110); HDL CHOLESTEROL 42 mg/dL (40-60); LDL CHOL (CALC.) 94 mg/dL (0-130); POTASSIUM 3.9 mmol/L (3.5-5.1); SODIUM SERUM 146 mmol/L (136-145); THYROID STIMULATING HORMONE 2.19 uIU/mL (0.36-3.74); TRIGLYCERIDES 137 mg/dL (15-150); UREA NITROGEN, BLOOD 20 mg/dL (7-18); VALPROIC ACID 58 mcg/mL (50-100)
[2020-11-11 07:51] LABS: URIC ACID 5.8 mg/dL (2.6-7.2)
[2020-11-11 08:15] VITALS: BP 116/69
[2020-11-11] MEDS: CHOLECALCIFEROL (VIT D3) 1,000 UNITS [25 MCG] TABLET PO SCH (08:29)
[2020-11-11] MEDS: FAMOTIDINE 20 MG TABLET PO SCH ×2 (08:29→20:29)
[2020-11-11] MEDS: MULTIVITAMINS WITH MINERALS, THERAPEUTIC TABLET PO SCH (08:29)
[2020-11-11] MEDS: ENOXAPARIN SODIUM 40 MG/0.4 ML PF SYRINGE SQ SCH (08:29)
[2020-11-11] MEDS: PARoxetine HCL 20 MG TABLET PO SCH (08:29)
[2020-11-11] MEDS: TAMSULOSIN HCL 0.4 MG CAPSULE PO SCH (08:29)
[2020-11-11] MEDS: OMEGA-3/DHA/EPA/FISH OIL 1,000 MG CAPSULE PO SCH (08:32)
[2020-11-11] MEDS: CefTRIAXone 1 GM/DEXTROSE 50 ML IV SCH (13:05)
[2020-11-11 15:47] VITALS: BP 133/75
[2020-11-11 20:17] VITALS: BP_SYST 141; BP_SYST 142; BP_DIAS 65; BP_DIAS 71
[2020-11-11] MEDS: CloZAPine 100 MG TABLET PO SCH (20:28)
[2020-11-11] MEDS: DUTASTERIDE 0.5 MG CAPSULE PO SCH (20:28)
[2020-11-11] MEDS: DIVALPROEX SODIUM 500 MG ER TABLET PO SCH (20:29)
[2020-11-11] MEDS: MELATONIN 5 MG TABLET PO SCH (20:29)
[2020-11-11 23:50] VITALS: BP 111/62
[2020-11-12 04:35] VITALS: BP 132/66
[2020-11-12 06:02] LABS: BASOPHILS % (AUTO) 1.1 % (0.0-2.0); EOSINOPHILS % (AUTO) 5.6 % (1.0-6.0); HEMATOCRIT 42.3 % (41-53); HEMOGLOBIN 13.7 g/dL (13.5-17.5); LYMPHOCYTES # (AUTO) 1.5 K/uL (1.0-4.8); LYMPHOCYTES % (AUTO) 22.3 % (22.0-44.0); MEAN CORPUSCULAR HEMOGLOBIN 29.6 pg (26.0-34.0); MEAN CORPUSCULAR HGB CONC 32.5 G/dL (31.0-37.0); MEAN CORPUSCULAR VOLUME 91 fL (80-100); MONOCYTES # (AUTO) 0.7 K/uL (0.1-1.0); MONOCYTES % (AUTO) 10.5 % (2.0-9.0); NEUTROPHILS # (AUTO) 4.2 K/uL (1.8-7.7); NEUTROPHILS % (AUTO) 60.5 % (40.0-70.0); PLATELET COUNT (AUTO) 176 K/uL (150-450); RED BLOOD CELL COUNT(AUTO) 4.64 MIL/uL (4.50-5.90)
[2020-11-12 06:49] LABS: ANION GAP 9 mmol/L (8-16); CALCIUM, TOTAL 8.6 mg/dL (8.8-10.5); CARBON DIOXIDE 26 mmol/L (22-29); CHLORIDE 110 mmol/L (98-107); CREATININE 1.01 mg/dL (0.60-1.30); GLOMERULAR FILTR. RATE CALC > 60 mL/min (>60); GLUCOSE,RANDOM 137 mg/dL (70-110); POTASSIUM 4.1 mmol/L (3.5-5.1); SODIUM SERUM 145 mmol/L (136-145); UREA NITROGEN, BLOOD 19 mg/dL (7-18)
[2020-11-12 07:25] VITALS: BP 128/64
[2020-11-12] MEDS: TAMSULOSIN HCL 0.4 MG CAPSULE PO SCH (08:09)
[2020-11-12] MEDS: CHOLECALCIFEROL (VIT D3) 1,000 UNITS [25 MCG] TABLET PO SCH (08:09)
[2020-11-12] MEDS: FAMOTIDINE 20 MG TABLET PO SCH ×2 (08:09→20:21)
[2020-11-12] MEDS: OMEGA-3/DHA/EPA/FISH OIL 1,000 MG CAPSULE PO SCH (08:09)
[2020-11-12] MEDS: MULTIVITAMINS WITH MINERALS, THERAPEUTIC TABLET PO SCH (08:09)
[2020-11-12] MEDS: PARoxetine HCL 20 MG TABLET PO SCH (08:09)
[2020-11-12] MEDS: ENOXAPARIN SODIUM 40 MG/0.4 ML PF SYRINGE SQ SCH (08:10)
[2020-11-12] MEDS: CefTRIAXone 1 GM/DEXTROSE 50 ML IV SCH (12:15)
[2020-11-12 15:48] VITALS: BP 116/71
[2020-11-12 19:55] VITALS: BP 110/53
[2020-11-12] MEDS: MELATONIN 5 MG TABLET PO SCH (20:21)
[2020-11-12] MEDS: DUTASTERIDE 0.5 MG CAPSULE PO SCH (20:21)
[2020-11-12] MEDS: CloZAPine 100 MG TABLET PO SCH (20:21)
[2020-11-12] MEDS: DIVALPROEX SODIUM 500 MG ER TABLET PO SCH (20:21)
[2020-11-13 04:43] VITALS: BP 113/70
[2020-11-13 07:30] VITALS: BP 118/76
[2020-11-13] MEDS: CHOLECALCIFEROL (VIT D3) 1,000 UNITS [25 MCG] TABLET PO SCH (08:07)
[2020-11-13] MEDS: MULTIVITAMINS WITH MINERALS, THERAPEUTIC TABLET PO SCH (08:07)
[2020-11-13] MEDS: ENOXAPARIN SODIUM 40 MG/0.4 ML PF SYRINGE SQ SCH (08:07)
[2020-11-13] MEDS: OMEGA-3/DHA/EPA/FISH OIL 1,000 MG CAPSULE PO SCH (08:07)
[2020-11-13] MEDS: TAMSULOSIN HCL 0.4 MG CAPSULE PO SCH (08:07)
[2020-11-13] MEDS: PARoxetine HCL 20 MG TABLET PO SCH (08:07)
[2020-11-13] MEDS: FAMOTIDINE 20 MG TABLET PO SCH ×2 (08:07→20:03)
[2020-11-13 08:42] LABS: ANION GAP 7 mmol/L (8-16); CALCIUM, TOTAL 8.7 mg/dL (8.8-10.5); CARBON DIOXIDE 29 mmol/L (22-29); CHLORIDE 108 mmol/L (98-107); CREATININE 0.96 mg/dL (0.60-1.30); GLOMERULAR FILTR. RATE CALC > 60 mL/min (>60); GLUCOSE,RANDOM 99 mg/dL (70-110); POTASSIUM 4.5 mmol/L (3.5-5.1); SODIUM SERUM 144 mmol/L (136-145); UREA NITROGEN, BLOOD 20 mg/dL (7-18)
[2020-11-13 08:43] LABS: BASOPHILS % (AUTO) 1.2 % (0.0-2.0); EOSINOPHILS % (AUTO) 8.2 % (1.0-6.0); HEMATOCRIT 41.5 % (41-53); HEMOGLOBIN 13.6 g/dL (13.5-17.5); LYMPHOCYTES # (AUTO) 1.7 K/uL (1.0-4.8); LYMPHOCYTES % (AUTO) 23.5 % (22.0-44.0); MEAN CORPUSCULAR HEMOGLOBIN 29.7 pg (26.0-34.0); MEAN CORPUSCULAR HGB CONC 32.8 G/dL (31.0-37.0); MEAN CORPUSCULAR VOLUME 91 fL (80-100); MONOCYTES # (AUTO) 0.7 K/uL (0.1-1.0); MONOCYTES % (AUTO) 10.2 % (2.0-9.0); NEUTROPHILS % (AUTO) 56.9 % (40.0-70.0); PLATELET COUNT (AUTO) 190 K/uL (150-450); RED BLOOD CELL COUNT(AUTO) 4.58 MIL/uL (4.50-5.90); RED CELL DISTRIBUTION WIDTH 14.8 % (11.5-14.5)
[2020-11-13] MEDS: CefTRIAXone 1 GM/DEXTROSE 50 ML IV SCH (12:49)
[2020-11-13 18:56] LABS: COVID AG,FIA SOURCE NASAL SWAB
[2020-11-13] MEDS: DIVALPROEX SODIUM 500 MG ER TABLET PO SCH (20:04)
[2020-11-13] MEDS: CloZAPine 100 MG TABLET PO SCH (20:04)
[2020-11-13] MEDS: MELATONIN 5 MG TABLET PO SCH (20:04)
[2020-11-13] MEDS: DUTASTERIDE 0.5 MG CAPSULE PO SCH (20:04)
[2020-11-14] MEDS ORDERED: ZINC220C6 PO (11:20)
== END 2020-11-13 21:00 | DRG 689 ==
LOC: EMS 10:46 → 6N 13:14
PROVIDERS: ADMIT Internal Medicine Geriatric Medicine; ATTEND Internal Medicine Geriatric Medicine
DX: N13.6 Pyonephrosis (principal); G93.41 Metabolic encephalopathy; N40.1 Benign prostatic hyperplasia with lower urinary tract symptoms; F25.9 Schizoaffective disorder, unspecified; D64.9 Anemia, unspecified; B95.2 Enterococcus as the cause of diseases classified elsewhere; N20.0 Calculus of kidney; Z20.822 Contact with and (suspected) exposure to COVID-19; Z87.442 Personal history of urinary calculi; E55.9 Vitamin D deficiency, unspecified; K21.9 Gastro-esophageal reflux disease without esophagitis; Z79.899 Other long term (current) drug therapy
CPT/HCPCS: 76770; 80074; 80159; 83036; 83735; 84439; 84443; 84550; 86592; 87086; 87426; 99285; A9575; G0480; J0696; J1650; J7030

== ENCOUNTER 2020-11-13 20:58 | Inpatient (IN) | payer OTHER, MEDICAID ==
[~2020-11-13] VITALS: Ht 188 cm; Wt 83.9 kg
[2020-11-13 21:00] VITALS: BP 128/82
[2020-11-14 02:28] VITALS: BP 139/94
[2020-11-14 07:06] LABS: ALANINE AMINOTRANSFERASE 14 U/L (12-78); ALBUMIN 3.3 g/dL (3.4-5.0); ALKALINE PHOSPHATASE 53 U/L (46-116); ANION GAP 9 mmol/L (8-16); ASPARTATE AMINOTRANSFERASE 21 U/L (15-37); BILIRUBIN,TOTAL 0.2 mg/dL (0.1-1.0); CALCIUM, TOTAL 9.4 mg/dL (8.8-10.5); CARBON DIOXIDE 26 mmol/L (22-29); CHLORIDE 106 mmol/L (98-107); CREATININE 0.93 mg/dL (0.60-1.30); GLOMERULAR FILTR. RATE CALC > 60 mL/min (>60); GLUCOSE,RANDOM 98 mg/dL (70-110); POTASSIUM 4.7 mmol/L (3.5-5.1); SODIUM SERUM 141 mmol/L (136-145); TOTAL PROTEIN, SERUM 7.3 g/dL (6.4-8.2); UREA NITROGEN, BLOOD 17 mg/dL (7-18)
[2020-11-14] MEDS: MULTIVITAMINS WITH MINERALS, THERAPEUTIC TABLET PO SCH (08:51)
[2020-11-14] MEDS: OMEGA-3/DHA/EPA/FISH OIL 1,000 MG CAPSULE PO SCH (08:51)
[2020-11-14] MEDS: LEVOFLOXACIN 500 MG TABLET PO SCH (08:51)
[2020-11-14] MEDS: TAMSULOSIN HCL 0.4 MG CAPSULE PO SCH (08:51)
[2020-11-14] MEDS: FAMOTIDINE 20 MG TABLET PO SCH ×2 (08:51→16:23)
[2020-11-14 08:53] VITALS: BP 134/78
[2020-11-14 10:38] LABS: BASOPHILS % (AUTO) 1.1 % (0.0-2.0); EOSINOPHILS % (AUTO) 4.8 % (1.0-6.0); HEMATOCRIT 41.5 % (41-53); HEMOGLOBIN 13.8 g/dL (13.5-17.5); LYMPHOCYTES # (AUTO) 1.4 K/uL (1.0-4.8); LYMPHOCYTES % (AUTO) 17.6 % (22.0-44.0); MEAN CORPUSCULAR HEMOGLOBIN 29.7 pg (26.0-34.0); MEAN CORPUSCULAR HGB CONC 33.4 G/dL (31.0-37.0); MEAN CORPUSCULAR VOLUME 89 fL (80-100); MONOCYTES # (AUTO) 0.7 K/uL (0.1-1.0); MONOCYTES % (AUTO) 9.5 % (2.0-9.0); NEUTROPHILS # (AUTO) 5.2 K/uL (1.8-7.7); PLATELET COUNT (AUTO) 193 K/uL (150-450); RED BLOOD CELL COUNT(AUTO) 4.66 MIL/uL (4.50-5.90); RED CELL DISTRIBUTION WIDTH 14.8 % (11.5-14.5)
[2020-11-14] MEDS ORDERED: ACETAMINOPHEN 325 MG TABLET PO PRN (11:15)
[2020-11-14] MEDS ORDERED: GuaiFENesin/D-METHORPHAN [SUGAR-FREE] 200-20MG/10 ML SYRUP UDCUP PO PRN (11:15)
[2020-11-14] MEDS ORDERED: PROMETHAZINE HCL 25 MG TABLET PO PRN (11:15)
[2020-11-14] MEDS ORDERED: MAG HYDROX/AL HYDROX/SIMETH ES 30 ML SUSPENSION UDCUP PO PRN (11:15)
[2020-11-14] MEDS ORDERED: ZOLPIDEM TARTRATE 5 MG TABLET PO PRN (11:15)
[2020-11-14] MEDS ORDERED: LOPERAMIDE HCL 2 MG CAPSULE PO PRN (11:15)
[2020-11-14] MEDS ORDERED: MAGNESIUM HYDROXIDE SUSPENSION 30 ML UDCUP PO PRN (11:15)
[2020-11-14] MEDS ORDERED: HydrOXYzine PAMOATE 50 MG CAPSULE PO PRN (11:15)
[2020-11-14] MEDS ORDERED: ZINC220C6 PO (11:20)
[2020-11-14 16:00] VITALS: BP 133/78
[2020-11-14] MEDS: THIAMINE 100 MG TABLET PO SCH (16:23)
[2020-11-14] MEDS: DUTASTERIDE 0.5 MG CAPSULE PO SCH (20:54)
[2020-11-14] MEDS: CloZAPine 100 MG TABLET PO SCH (20:54)
[2020-11-14] MEDS: MELATONIN 5 MG TABLET PO SCH (20:54)
[2020-11-14] MEDS: DIVALPROEX SODIUM 500 MG ER TABLET PO SCH (20:54)
[2020-11-15 04:55] VITALS: BP 96/60
[2020-11-15 08:46] VITALS: BP 125/73
[2020-11-15] MEDS ORDERED: PARoxetine HCL 20 MG TABLET PO SCH (09:00)
[2020-11-15] MEDS ORDERED: OMEGA-3/DHA/EPA/FISH OIL 1,000 MG CAPSULE PO SCH (09:00)
[2020-11-15] MEDS ORDERED: MULTIVITAMINS WITH MINERALS, THERAPEUTIC TABLET PO SCH (09:00)
[2020-11-15] MEDS: FAMOTIDINE 20 MG TABLET PO SCH ×2 (09:04→21:38)
[2020-11-15] MEDS: PARoxetine HCL 20 MG TABLET PO SCH ×2 (09:05→21:39)
[2020-11-15] MEDS: OMEGA-3/DHA/EPA/FISH OIL 1,000 MG CAPSULE PO SCH (09:05)
[2020-11-15] MEDS: FOLIC ACID 1 MG TABLET PO SCH (09:05)
[2020-11-15] MEDS: THIAMINE 100 MG TABLET PO SCH ×2 (09:05→21:39)
[2020-11-15] MEDS: MULTIVITAMINS WITH MINERALS, THERAPEUTIC TABLET PO SCH (09:05)
[2020-11-15] MEDS: TAMSULOSIN HCL 0.4 MG CAPSULE PO SCH (09:06)
[2020-11-15] MEDS: LEVOFLOXACIN 500 MG TABLET PO SCH (09:06)
[2020-11-15] MEDS: NALTREXONE HCL 50 MG TABLET PO SCH (09:06)
[2020-11-15 16:00] VITALS: BP 109/77
[2020-11-15] MEDS: CloZAPine 100 MG TABLET PO SCH (21:38)
[2020-11-15] MEDS: DIVALPROEX SODIUM 500 MG ER TABLET PO SCH (21:38)
[2020-11-15] MEDS: DUTASTERIDE 0.5 MG CAPSULE PO SCH (21:39)
[2020-11-15] MEDS: MELATONIN 5 MG TABLET PO SCH (21:39)
[2020-11-16 08:00] VITALS: BP 123/73
[2020-11-16] MEDS: THIAMINE 100 MG TABLET PO SCH ×2 (08:45→16:56)
[2020-11-16] MEDS: MULTIVITAMINS WITH MINERALS, THERAPEUTIC TABLET PO SCH (08:45)
[2020-11-16] MEDS: FOLIC ACID 1 MG TABLET PO SCH (08:45)
[2020-11-16] MEDS: OMEGA-3/DHA/EPA/FISH OIL 1,000 MG CAPSULE PO SCH (08:45)
[2020-11-16] MEDS: TAMSULOSIN HCL 0.4 MG CAPSULE PO SCH (08:45)
[2020-11-16] MEDS: NALTREXONE HCL 50 MG TABLET PO SCH (08:45)
[2020-11-16] MEDS: PARoxetine HCL 20 MG TABLET PO SCH ×2 (08:46→16:56)
[2020-11-16] MEDS: LEVOFLOXACIN 500 MG TABLET PO SCH (08:46)
[2020-11-16] MEDS: FAMOTIDINE 20 MG TABLET PO SCH ×2 (08:46→16:56)
[2020-11-16] MEDS: GABAPENTIN 300 MG CAPSULE PO PRN (14:01)
[2020-11-16 16:00] VITALS: BP 120/74
[2020-11-16] MEDS ORDERED: MELA5TAB3 PO (18:47)
[2020-11-16] MEDS ORDERED: PARO-37 PO (18:47)
[2020-11-16] MEDS ORDERED: NALT50TA PO (18:47)
[2020-11-16] MEDS ORDERED: DIVA-80 PO (18:47)
[2020-11-16] MEDS ORDERED: GABA-1181 PO (18:47)
[2020-11-16] MEDS ORDERED: CLOZ100T31 PO (18:47)
[2020-11-16] MEDS ORDERED: OMEG-135 PO (18:47)
[2020-11-16] MEDS: CloZAPine 100 MG TABLET PO SCH (20:44)
[2020-11-16] MEDS: MELATONIN 5 MG TABLET PO SCH (20:44)
[2020-11-16] MEDS: DUTASTERIDE 0.5 MG CAPSULE PO SCH (20:44)
[2020-11-16] MEDS: DIVALPROEX SODIUM 500 MG ER TABLET PO SCH (20:44)
[2020-11-17] MEDS: OMEGA-3/DHA/EPA/FISH OIL 1,000 MG CAPSULE PO SCH (08:36)
[2020-11-17] MEDS: MULTIVITAMINS WITH MINERALS, THERAPEUTIC TABLET PO SCH (08:36)
[2020-11-17] MEDS: FOLIC ACID 1 MG TABLET PO SCH (08:36)
[2020-11-17] MEDS: NALTREXONE HCL 50 MG TABLET PO SCH (08:36)
[2020-11-17] MEDS: PARoxetine HCL 20 MG TABLET PO SCH ×2 (08:36→16:04)
[2020-11-17] MEDS: THIAMINE 100 MG TABLET PO SCH ×2 (08:36→16:04)
[2020-11-17] MEDS: TAMSULOSIN HCL 0.4 MG CAPSULE PO SCH (08:36)
[2020-11-17] MEDS: LEVOFLOXACIN 500 MG TABLET PO SCH (08:37)
[2020-11-17] MEDS: FAMOTIDINE 20 MG TABLET PO SCH ×2 (08:37→16:04)
[2020-11-17 08:52] VITALS: BP 97/65
[2020-11-17] MEDS: GABAPENTIN 300 MG CAPSULE PO PRN ×2 (11:19→16:23)
[2020-11-17 18:39] VITALS: BP 117/78
[2020-11-17] MEDS: DUTASTERIDE 0.5 MG CAPSULE PO SCH (20:39)
[2020-11-17] MEDS: MELATONIN 5 MG TABLET PO SCH (20:40)
[2020-11-17] MEDS: DIVALPROEX SODIUM 500 MG ER TABLET PO SCH (20:40)
[2020-11-17] MEDS: CloZAPine 100 MG TABLET PO SCH (20:40)
[2020-11-18 09:12] VITALS: BP 135/89
[2020-11-18] MEDS: FAMOTIDINE 20 MG TABLET PO SCH ×2 (09:32→16:43)
[2020-11-18] MEDS: NALTREXONE HCL 50 MG TABLET PO SCH (09:32)
[2020-11-18] MEDS: MULTIVITAMINS WITH MINERALS, THERAPEUTIC TABLET PO SCH (09:32)
[2020-11-18] MEDS: THIAMINE 100 MG TABLET PO SCH ×2 (09:32→16:44)
[2020-11-18] MEDS: PARoxetine HCL 20 MG TABLET PO SCH ×2 (09:32→16:44)
[2020-11-18] MEDS: FOLIC ACID 1 MG TABLET PO SCH (09:32)
[2020-11-18] MEDS: LEVOFLOXACIN 500 MG TABLET PO SCH (09:32)
[2020-11-18] MEDS: TAMSULOSIN HCL 0.4 MG CAPSULE PO SCH (09:32)
[2020-11-18] MEDS: OMEGA-3/DHA/EPA/FISH OIL 1,000 MG CAPSULE PO SCH (09:33)
[2020-11-18] MEDS: GABAPENTIN 300 MG CAPSULE PO PRN (13:51)
[2020-11-18 16:20] VITALS: BP 111/72
[2020-11-18] MEDS: DUTASTERIDE 0.5 MG CAPSULE PO SCH (20:30)
[2020-11-18] MEDS: CloZAPine 100 MG TABLET PO SCH (20:31)
[2020-11-18] MEDS: DIVALPROEX SODIUM 500 MG ER TABLET PO SCH (20:31)
[2020-11-18] MEDS: MELATONIN 5 MG TABLET PO SCH (20:31)
[2020-11-19] MEDS: OMEGA-3/DHA/EPA/FISH OIL 1,000 MG CAPSULE PO SCH (08:32)
[2020-11-19] MEDS: PARoxetine HCL 20 MG TABLET PO SCH ×2 (08:32→16:05)
[2020-11-19] MEDS: FAMOTIDINE 20 MG TABLET PO SCH ×2 (08:33→16:05)
[2020-11-19] MEDS: FOLIC ACID 1 MG TABLET PO SCH (08:33)
[2020-11-19] MEDS: THIAMINE 100 MG TABLET PO SCH ×2 (08:33→16:05)
[2020-11-19] MEDS: NALTREXONE HCL 50 MG TABLET PO SCH (08:33)
[2020-11-19] MEDS: TAMSULOSIN HCL 0.4 MG CAPSULE PO SCH (08:33)
[2020-11-19] MEDS: MULTIVITAMINS WITH MINERALS, THERAPEUTIC TABLET PO SCH (08:33)
[2020-11-19] MEDS: GABAPENTIN 300 MG CAPSULE PO PRN ×2 (12:33→16:33)
[2020-11-19 16:10] VITALS: BP 125/71
[2020-11-19 19:40] VITALS: BP 116/73
[2020-11-19 20:06] VITALS: BP 116/73
[2020-11-19] MEDS: MELATONIN 5 MG TABLET PO SCH (21:23)
[2020-11-19] MEDS: DUTASTERIDE 0.5 MG CAPSULE PO SCH (21:23)
[2020-11-19] MEDS: DIVALPROEX SODIUM 500 MG ER TABLET PO SCH (21:23)
[2020-11-19] MEDS: CloZAPine 100 MG TABLET PO SCH (21:24)
[2020-11-20 05:56] VITALS: BP 113/63
[2020-11-20 08:20] VITALS: BP 112/85
[2020-11-20] MEDS: PARoxetine HCL 20 MG TABLET PO SCH ×2 (08:58→16:28)
[2020-11-20] MEDS: FAMOTIDINE 20 MG TABLET PO SCH ×2 (08:58→16:28)
[2020-11-20] MEDS: OMEGA-3/DHA/EPA/FISH OIL 1,000 MG CAPSULE PO SCH (08:58)
[2020-11-20] MEDS: NALTREXONE HCL 50 MG TABLET PO SCH (08:58)
[2020-11-20] MEDS: TAMSULOSIN HCL 0.4 MG CAPSULE PO SCH (08:58)
[2020-11-20] MEDS: MULTIVITAMINS WITH MINERALS, THERAPEUTIC TABLET PO SCH (08:58)
[2020-11-20] MEDS: FOLIC ACID 1 MG TABLET PO SCH (08:58)
[2020-11-20] MEDS: THIAMINE 100 MG TABLET PO SCH ×2 (08:58→16:28)
[2020-11-20 11:32] LABS: COVID AG,FIA SOURCE NASOPHARYNGEAL
[2020-11-20] MEDS: GABAPENTIN 300 MG CAPSULE PO PRN ×2 (14:44→18:44)
[2020-11-20 16:00] VITALS: BP 127/76
[2020-11-20] MEDS: MELATONIN 5 MG TABLET PO SCH (20:26)
[2020-11-20] MEDS: DUTASTERIDE 0.5 MG CAPSULE PO SCH (20:26)
[2020-11-20] MEDS: DIVALPROEX SODIUM 500 MG ER TABLET PO SCH (20:27)
[2020-11-20] MEDS: CloZAPine 100 MG TABLET PO SCH (20:27)
[2020-11-21] MEDS: PARoxetine HCL 20 MG TABLET PO SCH ×2 (08:13→16:07)
[2020-11-21] MEDS: TAMSULOSIN HCL 0.4 MG CAPSULE PO SCH (08:13)
[2020-11-21] MEDS: FAMOTIDINE 20 MG TABLET PO SCH ×2 (08:13→16:07)
[2020-11-21] MEDS: THIAMINE 100 MG TABLET PO SCH ×2 (08:13→16:07)
[2020-11-21] MEDS: NALTREXONE HCL 50 MG TABLET PO SCH (08:13)
[2020-11-21] MEDS: MULTIVITAMINS WITH MINERALS, THERAPEUTIC TABLET PO SCH (08:14)
[2020-11-21] MEDS: FOLIC ACID 1 MG TABLET PO SCH (08:14)
[2020-11-21] MEDS: OMEGA-3/DHA/EPA/FISH OIL 1,000 MG CAPSULE PO SCH (08:14)
[2020-11-21 08:41] LABS: BASOPHILS % (AUTO) 1.8 % (0.0-2.0); EOSINOPHILS % (AUTO) 10.4 % (1.0-6.0); HEMATOCRIT 39.7 % (41-53); HEMOGLOBIN 13.2 g/dL (13.5-17.5); LYMPHOCYTES # (AUTO) 1.7 K/uL (1.0-4.8); LYMPHOCYTES % (AUTO) 28.2 % (22.0-44.0); MEAN CORPUSCULAR HEMOGLOBIN 30.2 pg (26.0-34.0); MEAN CORPUSCULAR HGB CONC 33.1 G/dL (31.0-37.0); MEAN CORPUSCULAR VOLUME 91 fL (80-100); MONOCYTES # (AUTO) 0.6 K/uL (0.1-1.0); MONOCYTES % (AUTO) 8.9 % (2.0-9.0); NEUTROPHILS # (AUTO) 3.1 K/uL (1.8-7.7); NEUTROPHILS % (AUTO) 50.7 % (40.0-70.0); PLATELET COUNT (AUTO) 190 K/uL (150-450); RED BLOOD CELL COUNT(AUTO) 4.36 MIL/uL (4.50-5.90); RED CELL DISTRIBUTION WIDTH 14.9 % (11.5-14.5)
[2020-11-21 09:23] VITALS: BP 115/98
[2020-11-21] MEDS: GABAPENTIN 300 MG CAPSULE PO PRN (13:16)
== END 2020-11-21 16:08 | disposition home or self-care (01) | DRG 885 ==
LOC: 3EI 20:58
PROVIDERS: ADMIT Psychiatry & Neurology Psychiatry; ATTEND Psychiatry & Neurology Psychiatry
DX: F25.9 Schizoaffective disorder, unspecified (principal); D64.9 Anemia, unspecified; E88.09 Other disorders of plasma-protein metabolism, not elsewhere classified; F41.9 Anxiety disorder, unspecified; N40.0 Benign prostatic hyperplasia without lower urinary tract symptoms; F22 Delusional disorders; M54.9 Dorsalgia, unspecified; G89.29 Other chronic pain; K21.9 Gastro-esophageal reflux disease without esophagitis; R41.843 Psychomotor deficit; Z20.822 Contact with and (suspected) exposure to COVID-19; Z55.9 Problems related to education and literacy, unspecified; Z59.9 Problem related to housing and economic circumstances, unspecified; Z65.3 Problems related to other legal circumstances; Z87.442 Personal history of urinary calculi; Z79.899 Other long term (current) drug therapy
CPT/HCPCS: 80159; 87081; 87426; A9575

== ENCOUNTER 2021-07-18 18:44 | Emergency (ER) | payer OTHER, MEDICAID ==
[~2021-07-18] VITALS: Ht 188 cm; Wt 88.6 kg
[~2021-07-18 18:44] MED LIST changes: -ASCO500 PO; -BENZ1TAB10 PO; -CHOL100044 PO; -FAMO20 PO; -FLUP10TA8 PO; +GABA-1181 PO; +MELA5TAB40 PO; +NALT50TA PO; +OMEG-135 PO; +PARO-37 PO; -ZINC220C14 PO
[2021-07-18 18:56] VITALS: BP 110/65
[2021-07-18 20:05] LABS: BASOPHILS % (AUTO) 1.2 % (0.0-2.0); EOSINOPHILS % (AUTO) 2.6 % (1.0-6.0); HEMATOCRIT 40.7 % (41-53); HEMOGLOBIN 13.7 g/dL (13.5-17.5); LYMPHOCYTES # (AUTO) 1.7 K/uL (1.0-4.8); LYMPHOCYTES % (AUTO) 26.2 % (22.0-44.0); MEAN CORPUSCULAR HEMOGLOBIN 31.1 pg (26.0-34.0); MEAN CORPUSCULAR HGB CONC 33.5 G/dL (31.0-37.0); MEAN CORPUSCULAR VOLUME 93 fL (80-100); MONOCYTES # (AUTO) 0.6 K/uL (0.1-1.0); MONOCYTES % (AUTO) 9.6 % (2.0-9.0); NEUTROPHILS # (AUTO) 3.9 K/uL (1.8-7.7); NEUTROPHILS % (AUTO) 60.4 % (40.0-70.0); PLATELET COUNT (AUTO) 171 K/uL (150-450); RED BLOOD CELL COUNT(AUTO) 4.39 MIL/uL (4.50-5.90)
[2021-07-18 20:13] LABS: ANION GAP 9 mmol/L (8-16); CALCIUM, TOTAL 8.6 mg/dL (8.8-10.5); CARBON DIOXIDE 30 mmol/L (22-29); CHLORIDE 104 mmol/L (98-107); CREATININE 1.32 mg/dL (0.60-1.30); GLOMERULAR FILTR. RATE CALC 55 mL/min (>60); GLUCOSE,RANDOM 106 mg/dL (70-110); POTASSIUM 4.2 mmol/L (3.5-5.1); SODIUM SERUM 143 mmol/L (136-145); UREA NITROGEN, BLOOD 18 mg/dL (7-18)
[2021-07-18 20:19] LABS: ALANINE AMINOTRANSFERASE 54 U/L (12-78); ALBUMIN 3.5 g/dL (3.4-5.0); ALKALINE PHOSPHATASE 52 U/L (46-116); ASPARTATE AMINOTRANSFERASE 33 U/L (15-37); BILIRUBIN,TOTAL 0.4 mg/dL (0.1-1.0); TOTAL PROTEIN, SERUM 7.1 g/dL (6.4-8.2)
[2021-07-18 20:59] LABS: VALPROIC ACID 63 mcg/mL (50-100)
[2021-07-18 21:12] LABS: AMPHET/METH SCREEN,URINE NEGATIVE (NEGATIVE); BARBITURATE SCREEN, URINE NEGATIVE (NEGATIVE); BENZODIAZEPINES SCREEN,URINE NEGATIVE (NEGATIVE); CANNABINOID SCREEN,URINE NEGATIVE (NEGATIVE); COCAINE SCREEN,URINE NEGATIVE (NEGATIVE); METHADONE SCREEN, URINE NEGATIVE (NEGATIVE); OPIATE SCREEN,URINE NEGATIVE (NEGATIVE)
[2021-07-18 21:18] LABS: PHENCYCLIDINE SCREEN,URINE NEGATIVE (NEGATIVE)
[2021-07-18 22:10] LABS: APPEARANCE,URINE CLOUDY (CLEAR); BILIRUBIN,URINE NEGATIVE (NEGATIVE); GLUCOSE, URINE (UA) NEGATIVE (NEGATIVE); KETONES,URINE 15 mg/dL (NEGATIVE); LEUKOCYTE ESTERASE ,URINE MODERATE (NEGATIVE); NITRATE,URINE NEGATIVE (NEGATIVE); OCCULT BLOOD,URINE NEGATIVE (NEGATIVE); PROTEIN,URINE TRACE (NEGATIVE); UROBILINOGEN,URINE 0.2 mg/dL (<=1.0)
[2021-07-18 22:24] LABS: BACTERIA,URINE Few /HPF (None Seen); CALCIUM OXALATE CRYSTALS,UR Few /LPF (None Seen); OTHER CRYSTALS,URINE None Seen /LPF (None Seen); RBC,URINE None Seen /HPF (0-2); SQUAMOUS EPITHELIAL CELL,UR Few /LPF (None Seen); TRIPLE PHOSPHATE CRYSTAL,UR None Seen /LPF (None Seen); URIC ACID CRYSTALS,URINE None Seen /LPF (None Seen)
== END 2021-07-18 23:21 | disposition home or self-care (01) ==
LOC: EMS 18:44
DX: F20.9 Schizophrenia, unspecified (principal)
CPT/HCPCS: 36415; 80053; 80164; 80307; 81001; 85025; 87077; 87086; 87186; 99283; G0480